=== PATIENT | female | born 1995 | race African-American/Black ===

== ENCOUNTER 2017-07-13 05:15 | Emergency (ER) | payer SELFPAY ==
[2012-02-03 15:15] VITALS: BMI 31.9
[2017-07-13 05:47] LABS: BASOPHILS 0.1 % (0-2); EOSINOPHILS 0.4 % (0-7); HEMATOCRIT 38.7 % (36.0-48.0); HEMOGLOBIN 13.2 g/dL (12-16); IMMATURE GRANULOCYTES 0.2 % (0-5); LYMPHOCYTES 11.7 % (15-50); MCH 28.1 pg (26.0-34.0); MCHC 34.1 g/dL (31.0-37.0); MCV 82.5 fL (80.0-100.0); MEAN PLATELET VOLUME 10.7 fL (7.4-10.4); MONOCYTES 4.5 % (2-11); NEUTROPHILS 83.1 % (40-80); RBC 4.69 10x6/uL (4.00-5.40); RDW 13.2 % (11.5-14.5); WBC 8.1 10x3/uL (4.8-10.8)
[2017-07-13 05:48] LABS: PLATELET COUNT 199 10x3/uL (130-400)
[2017-07-13 06:17] LABS: APPEARANCE CLOUDY (CLEAR); BILIRUBIN NEGATIVE (NEGATIVE); COLOR DK YELLOW (YELLOW); GLUCOSE NEGATIVE (NEGATIVE); KETONE MODERATE mg/dL (NEGATIVE); LEUKOCYTE ESTERASE 2+ (NEGATIVE); NITRITE POSITIVE (NEGATIVE); PROTEIN TRACE mg/dL (NEGATIVE); UROBILINOGEN NORMAL (NORMAL)
[2017-07-13 06:20] LABS: BACTERIA MANY /hpf (NONE SEEN); EPITHELIAL CELLS 0-5 /hpf (0-5); RED CELLS - URINE 0-5 /hpf (0-5)
== END 2017-07-13 08:10 | disposition home or self-care (01) ==
LOC: D.ER 05:15
PROVIDERS: Emergency Medicine
DX: O23.40 Unspecified infection of urinary tract in pregnancy, unspecified trimester (principal); Z3A.00 Weeks of gestation of pregnancy not specified; O20.0 Threatened abortion; R11.10 Vomiting, unspecified

== ENCOUNTER 2019-09-05 16:14 | Outpatient (CLI) | payer SELFPAY ==
[~2019-09-05] VITALS: Ht 154.9 cm; Wt 80.7 kg
--- NOTE | 2019-09-05 17:55 | NUR ---
22G IV STARTED IN LEFT HAND X1 STICK. PT TOLERATED WELL. LR & ROCEPHIN STARTED AT THIS TIME.
--- NOTE | 2019-09-05 18:30 | NUR ---
REASSURED PT THAT OK FOR SIG OTHER TO BRING FOOD TO HER. DENIES ANY OTHER QUESTIONS OR CONCERNS AT THIS TIME.
[2019-09-05] MEDS ORDERED: AUGMENTIN 875-11 TAB (18:35)
[2019-09-05] MEDS ORDERED: MACROBID100 MG (18:35)
[2019-09-05] MEDS ORDERED: REGLAN10 MG (18:35)
[2019-09-05 18:37] VITALS: BMI 33.7
--- NOTE | 2019-09-05 19:03 | NUR ---
REPORT COMPLETED TO 7P-7A
[2019-09-05 19:22] VITALS: BP 135/82
--- NOTE | 2019-09-05 19:22 | NUR ---
PT REC'D IN BED AT THIS TIME. DENIES PAIN. STATES THAT SHE DOES HAVE SOME NAUSEA BUT REFUSES ZOFRAN AT THIS TIME. IV OF LR INFUSING TO THE LEFT HAND AT 125 ML/HR. SITE CLEAR AND PATENT AT THIS TIME. VSS. PATIENT AFEBRILE. NO ACUTE DISTRESS NOTED. SIDERAILS UP FOR SAFETY. CALL LIGHT IN PT REACH. Shazia KUMARI RN
--- NOTE | 2019-09-05 20:15 | NUR ---
PT INQUIRING ABOUT LABETOLOL. PT STATES THAT SHE HAS ONLY HAD 2 DOSES TODAY. PT INFORMED THAT THE MEDICATION IS ORDERED AND THAT WE CAN GIVE HER A THIRD DOSE TONIGHT. Shazia KUMARI RN
--- NOTE | 2019-09-05 21:40 | NUR ---
PT IN BED AT THIS TIME. DENIES NEEDS. NO DISTRESS NOTED. Shazia KUMARI RN
[2019-09-05 22:39] VITALS: BP 114/58
--- NOTE | 2019-09-05 22:39 | NUR ---
PT DENIES NEEDS AT THIS TIME. VSS. AFEBRILE. THIRD DOSE OF LABETOLOL GIVEN AT THIS TIME. Galina KUMARI RN
--- NOTE | 2019-09-06 00:50 | NUR ---
pt resting comfortably at this time. no distress noted. cary hernandez rn
--- NOTE | 2019-09-06 01:40 | NUR ---
PT RESTING WELL AT THIS TIME. NO COMPLAINTS, Shazia KUMARI, RN
--- NOTE | 2019-09-06 04:07 | NUR ---
PT ASLEEP. DID NOT AWAKEN. Shazia KUMARI RN
[2019-09-06 05:56] VITALS: BP 120/69
--- NOTE | 2019-09-06 05:57 | NUR ---
PT RESTING WELL THIS SHIFT. AFEBRILE. ROCEPHIN 1 GRAM UP AT THIS TIME. NO NEEDS VOICED. Shazia KUMARI RN
--- NOTE | 2019-09-06 07:30 | NUR ---
DR MIRANDA ON UNIT AND ROUNDS ON PATIENT. NO NEW ORDERS AT THIS TIME.
--- NOTE | 2019-09-06 07:45 | NUR ---
AM ASSESSMENT COMPLETED. PT RATES PAIN ON RIGHT SIDE AT 2/10 AT THIS TIME. LR INFUSING PER ORDER, IV TO LEFT HAND PATENT WITHOUT PT COMPLAINTS. LABETALOL 100MG GIVEN SCANNED TO EMAR. SIDE RAILS UP X 2 WITH CALL LIGHT IN REACH.
--- NOTE | 2019-09-06 08:30 | NUR ---
CALLED TO ROOM, PT ASKING IS POSSIBLE FOR HER TO SPEAK WITH DR MIRANDA, EXPLAINED THAT MD WAS IN SURGERY AT THIS TIME BUT MESSAGE WOULD BE LEFT FOR HER. NO OTHER NEEDS AT THIS TIME.
--- NOTE | 2019-09-06 09:00 | NUR ---
LARGE CUP OF ICE WATER PT REQUESTED. FHR 145-160 WITH DOPPLER. PT DENIES ANY INCREASE OR CHANGES IN RIGHT SIDED PAIN, RATES AT 2/10 AT THIS TIME.
--- NOTE | 2019-09-06 10:00 | NUR ---
DR MIRANDA ON UNIT REPORT TO MD THAT PT WISHES TO SPEAK WITH HER. TO ROOM. NEW ORDER RECEIVED FOR MY DR MIRANDA ON UNIT, REPORT GIVEN OF PT REQUEST TO SPEAK WITH HER. TO ROOM, NEW ORDER RECEIVED FOR TUMS EVERY 4 HOURS NEEDED FOR C/O HEARTBURN.
--- NOTE | 2019-09-06 12:30 | NUR ---
LARGE CUP OF ICE REQUESTED. PT IS SITTING UP IN BED EATING CHILLI CHEESE TOTS AND HOTDOG FROM [employer] THAT HER SIG OTHER HAS BROUGHT IN TO HER. DENIES ANY OTHER NEEDS AT THIS TIME.
--- NOTE | 2019-09-06 15:30 | NUR ---
DR MIRANDA NOTIFIED THAT PT WOULD LIKE TO TALK WITH HER WHEN SHE IS AVAILABLE.
[2019-09-06 15:46] VITALS: Ht 154.9 cm; Wt 80.7 kg
--- NOTE | 2019-09-06 18:00 | NUR ---
ROCEPHIN 1GRAM STARTED IVPB PER ORDERS PT DENIES ANY NEEDS AT THIS TIME.
--- NOTE | 2019-09-06 18:45 | NUR ---
VERBAL AND WRITTEN DISCHARGE INSTRUCTIONS GONE OVER WIHTOUT QUESTIONS OR CONCERNS. IV REMOVED FROM LEFT HAND WITH CATH INTACT. PT DENIES WHEELCHAIR AND CHOICES TO WALK OUT WITH SPOUSE. NO SIGNS OF DISTRESS NOTED.
== END 2019-09-06 18:56 | disposition home or self-care (01) ==
LOC: D.LDO 16:14 → D.LD 19:56 → D.LDO 09-06 18:56
PROVIDERS: ATTEND Student in an Organized Health Care Education/Training Program
DX: O23.02 Infections of kidney in pregnancy, second trimester (principal); O10.912 Unspecified pre-existing hypertension complicating pregnancy, second trimester; Z3A.23 23 weeks gestation of pregnancy

== ENCOUNTER → 2019-11-07 12:16 | Outpatient (CLI) | payer MEDICAID ==
[2019-09-06 15:46] VITALS: BMI 33.6
[~2019-11-07 12:16] MED LIST: AUGMENTIN 875-11 TAB; MACROBID100 MG; REGLAN10 MG
== END | disposition home or self-care (01) ==
LOC: D.LDO 12:16
PROVIDERS: ATTEND Student in an Organized Health Care Education/Training Program
DX: O16.3 Unspecified maternal hypertension, third trimester (principal); Z3A.32 32 weeks gestation of pregnancy